=== PATIENT | male | born 1955 | race Caucasian/White ===

== ENCOUNTER 2023-03-23 06:01 | Day surgery (SDC) | payer MEDICARE, MEDICAID ==
[2023-03-23] VITALS (7 sets, daily range): BP systolic 111–148; BP diastolic 52–93; PULSE 62–84; RESP 14–16; TEMP 97.9; O2SAT 96–98
[~2023-03-23] VITALS: Ht 182.9 cm; Wt 88.4 kg
[2023-03-23] MEDS ORDERED: normal saline 1000ml 1,000 ML IV PRN (06:30)
[2023-03-23] MEDS ORDERED: FLO0.4C PO (06:31)
[2023-03-23] MEDS ORDERED: POTA10CA85 PO (06:31)
[2023-03-23] MEDS ORDERED: SPIR50TA5 PO (06:31)
[2023-03-23] MEDS ORDERED: FURO40TA4 PO (06:31)
[2023-03-23] MEDS: albumin 25% 100mL bottle x 1 IV PRN ×2 (08:42→09:21)
== END 2023-03-23 10:01 | disposition home or self-care (01) ==
LOC: SSTAY O 06:01
PROVIDERS: ATTEND Radiology Diagnostic Radiology
DX: K70.31 Alcoholic cirrhosis of liver with ascites (principal); I10 Essential (primary) hypertension; I45.10 Unspecified right bundle-branch block; F39 Unspecified mood [affective] disorder; Z79.899 Other long term (current) drug therapy; Z88.0 Allergy status to penicillin
CPT/HCPCS: 49083; C1729; P9047

== ENCOUNTER 2023-03-29 07:51 | Day surgery (SDC) | payer MEDICARE, MEDICAID ==
[~2023-03-29] VITALS: Ht 182.9 cm; Wt 85.4 kg
[2023-03-29] VITALS (8 sets, daily range): BP systolic 74–135; BP diastolic 60–77; PULSE 54–65; RESP 16–18; TEMP 97.8; O2SAT 96–100
[~2023-03-29 07:51] MED LIST: FLO0.4C PO; FURO40TA4 PO; POTA10CA85 PO; SPIR50TA5 PO
[2023-03-29] MEDS ORDERED: albumin 25% 100mL bottle x 1 IV PRN (08:10)
== END 2023-03-29 11:12 | disposition home or self-care (01) ==
LOC: SSTAY O 07:51
PROVIDERS: ATTEND Radiology Vascular & Interventional Radiology
DX: K70.31 Alcoholic cirrhosis of liver with ascites (principal); I10 Essential (primary) hypertension; I45.10 Unspecified right bundle-branch block; F39 Unspecified mood [affective] disorder; Z98.890 Other specified postprocedural states; Z72.89 Other problems related to lifestyle; Z79.899 Other long term (current) drug therapy
CPT/HCPCS: 49083; C1729; P9047; A6258; A6449

== ENCOUNTER 2023-04-06 06:16 | Day surgery (SDC) | payer MEDICARE, MEDICAID ==
[2023-04-06] VITALS (8 sets, daily range): BP systolic 110–132; BP diastolic 64–85; PULSE 14–63; RESP 14–16; TEMP 97.5; O2SAT 95–98
[~2023-04-06] VITALS: Ht 182.9 cm; Wt 86.2 kg
[2023-04-06] MEDS ORDERED: albumin 25% 100mL bottle x 1 IV PRN (06:35)
== END 2023-04-06 09:50 | disposition home or self-care (01) ==
LOC: SSTAY O 06:16
PROVIDERS: ATTEND Radiology Diagnostic Radiology
DX: K70.31 Alcoholic cirrhosis of liver with ascites (principal); I10 Essential (primary) hypertension; I45.10 Unspecified right bundle-branch block; F39 Unspecified mood [affective] disorder; I87.2 Venous insufficiency (chronic) (peripheral); Z98.890 Other specified postprocedural states; Z79.899 Other long term (current) drug therapy
CPT/HCPCS: 49083; C1729; A6258; A6449

== ENCOUNTER 2023-04-13 08:18 | Day surgery (SDC) | payer MEDICARE, MEDICAID ==
[~2023-04-13] VITALS: Ht 182.9 cm; Wt 84.9 kg
[2023-04-13] MEDS ORDERED: albumin 25% 100mL bottle x 1 IV PRN (08:35)
[2023-04-13 09:02] VITALS: BP 136/84; PULSE 67; RESP 16; TEMP 98; O2SAT 99
[2023-04-13 09:30] VITALS: RESP 16; O2SAT 99
[2023-04-13 09:32] VITALS: BP 141/84; PULSE 63; RESP 16; O2SAT 100
[2023-04-13 09:46] VITALS: BP 110/79; PULSE 59; RESP 16; O2SAT 97
[2023-04-13 10:01] VITALS: BP 112/77; PULSE 60; RESP 16; O2SAT 100
[2023-04-13 10:15] VITALS: BP 129/82; PULSE 63; RESP 16; O2SAT 100
== END 2023-04-13 10:42 | disposition home or self-care (01) ==
LOC: SSTAY O 08:18
PROVIDERS: ATTEND Radiology Vascular & Interventional Radiology
DX: K70.31 Alcoholic cirrhosis of liver with ascites (principal); I10 Essential (primary) hypertension; I45.10 Unspecified right bundle-branch block; F39 Unspecified mood [affective] disorder; Z98.890 Other specified postprocedural states; Z88.0 Allergy status to penicillin; Z79.899 Other long term (current) drug therapy
CPT/HCPCS: 49083; C1729; P9047; 96360; A6258

== ENCOUNTER 2023-04-19 08:20 | Day surgery (SDC) | payer MEDICARE, MEDICAID ==
[~2023-04-19] VITALS: Ht 182.9 cm; Wt 85.3 kg
[2023-04-19] VITALS (8 sets, daily range): BP systolic 108–148; BP diastolic 67–92; PULSE 57–68; RESP 14–16; TEMP 97.9; O2SAT 96–100
[2023-04-19] MEDS ORDERED: albumin (human) 25% 100ml IV 100 ML IV PRN (10:00)
== END 2023-04-19 11:20 | disposition home or self-care (01) ==
LOC: SSTAY O 08:20
PROVIDERS: ATTEND Radiology Diagnostic Radiology
DX: K70.31 Alcoholic cirrhosis of liver with ascites (principal); I10 Essential (primary) hypertension; I45.10 Unspecified right bundle-branch block; F39 Unspecified mood [affective] disorder; Z98.890 Other specified postprocedural states; Z79.899 Other long term (current) drug therapy
CPT/HCPCS: 49083; C1729; P9047; 96360; A6258; A6449

== ENCOUNTER 2023-04-26 07:42 | Day surgery (SDC) | payer MEDICARE, MEDICAID ==
[2023-04-26] VITALS (7 sets, daily range): BP systolic 103–150; BP diastolic 40–86; PULSE 62–74; RESP 12; TEMP 98.2; O2SAT 94–98
[~2023-04-26] VITALS: Ht 182.9 cm; Wt 86.2 kg
[~2023-04-26 07:42] MED LIST changes: -FURO40TA4 PO; -POTA10CA85 PO; -SPIR50TA5 PO
[2023-04-26] MEDS ORDERED: normal saline 1000ml 1,000 ML IV PRN (08:00)
[2023-04-26] MEDS ORDERED: POTA10CA85 PO (08:13)
[2023-04-26] MEDS ORDERED: FURO40TA4 PO (08:13)
[2023-04-26] MEDS ORDERED: SPIR50TA5 PO (08:13)
[2023-04-26] MEDS: albumin 25% 100mL bottle x 1 IV PRN ×2 (08:36→09:45)
== END 2023-04-26 10:33 | disposition home or self-care (01) ==
LOC: SSTAY O 07:42
PROVIDERS: ATTEND Radiology Diagnostic Radiology
DX: K70.31 Alcoholic cirrhosis of liver with ascites (principal); I10 Essential (primary) hypertension; I45.10 Unspecified right bundle-branch block; F39 Unspecified mood [affective] disorder; Z98.890 Other specified postprocedural states; Z79.899 Other long term (current) drug therapy
CPT/HCPCS: 49083; C1729; P9047; A6258; A6449

== ENCOUNTER 2023-05-04 08:06 | Day surgery (SDC) | payer MEDICARE, MEDICAID ==
[2023-05-04] VITALS (7 sets, daily range): BP systolic 107–137; BP diastolic 65–86; PULSE 63–76; RESP 14–16; TEMP 98.2; O2SAT 94–98
[~2023-05-04] VITALS: Ht 182.9 cm; Wt 84.3 kg
[~2023-05-04 08:06] MED LIST changes: +FURO40TA4 PO; +POTA10CA85 PO; +SPIR50TA5 PO
[2023-05-04] MEDS ORDERED: albumin 25% 100mL bottle x 1 IV PRN (08:20)
== END 2023-05-04 10:35 | disposition home or self-care (01) ==
LOC: SSTAY O 08:06
PROVIDERS: ATTEND Radiology Vascular & Interventional Radiology
DX: K70.31 Alcoholic cirrhosis of liver with ascites (principal); I10 Essential (primary) hypertension; F39 Unspecified mood [affective] disorder; I45.10 Unspecified right bundle-branch block; Z98.890 Other specified postprocedural states; Z79.899 Other long term (current) drug therapy
CPT/HCPCS: 49083; C1729; P9047; A6258; A6449

== ENCOUNTER 2023-05-13 06:46 | Day surgery (SDC) | payer MEDICARE, MEDICAID ==
[~2023-05-13] VITALS: Ht 182.9 cm; Wt 85.0 kg
[2023-05-13 07:27] VITALS: BP 123/83; PULSE 76; RESP 14; TEMP 98.4; O2SAT 97
[2023-05-13] MEDS: albumin 25% 100mL bottle x 1 IV PRN ×2 (08:22→09:51)
[2023-05-13 08:55] VITALS: BP 129/86; PULSE 75; RESP 16; O2SAT 96
[2023-05-13 09:10] VITALS: BP 140/84; PULSE 59; RESP 16; O2SAT 96
[2023-05-13 09:25] VITALS: BP 106/70; PULSE 57; RESP 16; O2SAT 96
[2023-05-13 09:40] VITALS: BP 120/73; PULSE 63; RESP 16; O2SAT 96
[2023-05-13 09:55] VITALS: BP 125/76; PULSE 64; RESP 16; O2SAT 98
== END 2023-05-13 10:00 | disposition home or self-care (01) ==
LOC: SSTAY O 06:46
PROVIDERS: ATTEND Radiology Vascular & Interventional Radiology
DX: R18.8 Other ascites (principal); I10 Essential (primary) hypertension; Z79.899 Other long term (current) drug therapy; Z98.890 Other specified postprocedural states; Z88.0 Allergy status to penicillin; Z80.0 Family history of malignant neoplasm of digestive organs
CPT/HCPCS: 49083; C1729; P9047; 96360; A6258

== ENCOUNTER 2023-05-20 06:48 | Day surgery (SDC) | payer MEDICARE, MEDICAID ==
[2023-05-20] VITALS (7 sets, daily range): BP systolic 118–155; BP diastolic 65–93; PULSE 58–66; RESP 14–16; TEMP 97.9; O2SAT 96–100
[~2023-05-20] VITALS: Ht 182.9 cm; Wt 83.1 kg
[2023-05-20] MEDS: albumin 25% 100mL bottle x 1 IV PRN (08:28)
== END 2023-05-20 10:15 | disposition home or self-care (01) ==
LOC: SSTAY O 06:48
PROVIDERS: ATTEND Radiology Vascular & Interventional Radiology
DX: R18.8 Other ascites (principal); R14.0 Abdominal distension (gaseous); I10 Essential (primary) hypertension; Z98.890 Other specified postprocedural states
CPT/HCPCS: 49083; C1729; P9047; A6258; A6449

== ENCOUNTER 2023-05-27 06:14 | Day surgery (SDC) | payer MEDICARE, MEDICAID ==
[~2023-05-27] VITALS: Ht 182.9 cm; Wt 83.8 kg
[2023-05-27 06:35] VITALS: BP 129/86; PULSE 72; RESP 16; TEMP 98; O2SAT 96
[2023-05-27] MEDS: albumin 25% 100mL bottle x 1 IV PRN (07:42)
[2023-05-27 08:25] VITALS: BP 139/88; PULSE 65; RESP 16; O2SAT 98
[2023-05-27 08:40] VITALS: BP 123/73; PULSE 58; RESP 15; O2SAT 96
[2023-05-27 08:55] VITALS: BP 118/69; PULSE 57; RESP 17; O2SAT 97
[2023-05-27 09:05] VITALS: BP 119/73; PULSE 58; RESP 16; O2SAT 98
[2023-05-27 09:10] VITALS: BP 117/76; PULSE 57; RESP 16; O2SAT 98
== END 2023-05-27 09:10 | disposition home or self-care (01) ==
LOC: SSTAY O 06:14
PROVIDERS: ATTEND Radiology Vascular & Interventional Radiology
DX: K70.31 Alcoholic cirrhosis of liver with ascites (principal); I10 Essential (primary) hypertension; I45.10 Unspecified right bundle-branch block; F39 Unspecified mood [affective] disorder; Z98.890 Other specified postprocedural states; Z79.899 Other long term (current) drug therapy
CPT/HCPCS: 49083; C1729; P9047; A6258; A6449

== ENCOUNTER 2023-06-03 07:09 | Day surgery (SDC) | payer MEDICARE, MEDICAID ==
[2023-06-03] VITALS (9 sets, daily range): BP systolic 121–136; BP diastolic 72–82; PULSE 58–67; RESP 16; TEMP 98.4; O2SAT 94–99
[~2023-06-03] VITALS: Ht 182.9 cm; Wt 85.8 kg
[2023-06-03] MEDS: albumin 25% 100mL bottle x 1 IV PRN (10:51)
== END 2023-06-03 11:45 | disposition home or self-care (01) ==
LOC: SSTAY O 07:09
PROVIDERS: ATTEND Radiology Diagnostic Radiology
DX: R18.8 Other ascites (principal); I10 Essential (primary) hypertension; F32.A Depression, unspecified; F41.9 Anxiety disorder, unspecified; I45.10 Unspecified right bundle-branch block; K74.60 Unspecified cirrhosis of liver; F39 Unspecified mood [affective] disorder; Z79.899 Other long term (current) drug therapy; Z98.890 Other specified postprocedural states; Z80.0 Family history of malignant neoplasm of digestive organs
CPT/HCPCS: 49083; C1729; P9047; A6258; A6449

== ENCOUNTER 2023-06-10 08:10 | Day surgery (SDC) | payer MEDICARE, MEDICAID ==
[2023-06-10] VITALS (7 sets, daily range): BP systolic 112–133; BP diastolic 73–91; PULSE 57–72; RESP 16; TEMP 98.9; O2SAT 94–99
[~2023-06-10] VITALS: Ht 182.9 cm; Wt 84.9 kg
[2023-06-10] MEDS: albumin 25% 100mL bottle x 1 IV PRN (08:43)
== END 2023-06-10 09:35 | disposition home or self-care (01) ==
LOC: SSTAY O 08:10
PROVIDERS: ATTEND Radiology Vascular & Interventional Radiology
DX: R18.8 Other ascites (principal); R14.0 Abdominal distension (gaseous); I10 Essential (primary) hypertension; F32.A Depression, unspecified; F41.9 Anxiety disorder, unspecified; I45.10 Unspecified right bundle-branch block; K74.60 Unspecified cirrhosis of liver; F39 Unspecified mood [affective] disorder; Z79.899 Other long term (current) drug therapy; Z98.890 Other specified postprocedural states; Z80.0 Family history of malignant neoplasm of digestive organs
CPT/HCPCS: 49083; C1729; P9047; 96360; A6258